=== PATIENT | female | born 2005 | race Caucasian/White ===

== ENCOUNTER 2024-05-15 19:08 | Emergency (ER) | payer OTHER ==
[~2024-05-15] VITALS: Ht 177.8 cm; Wt 106.4 kg
[2024-05-15 20:59] VITALS: BP 111/58; PULSE 70; RESP 17; TEMP 98.8; O2SAT 99
--- NOTE | 2024-05-15 21:17 | DVH ---
EXAM: XY L WRIST 3+ VIEW XRAY CLINICAL HISTORY: s/p fall pain swelling COMPARISON: None TECHNIQUE: XY L WRIST 3+ VIEW XRAY Findings/Impression: 3 views of the left wrist. There is no evidence of an acute fracture, dislocation, blastic, or lytic lesions. No radiopaque foreign bodies. No joint effusion or superficial soft tissue abnormalities.
--- NOTE | 2024-05-15 21:19 | DVH ---
EXAM: XY L ELBOW 3 VIEW XRAY CLINICAL HISTORY: s/p fall swelling and px COMPARISON: None TECHNIQUE: XY L ELBOW 3 VIEW XRAY Findings/Impression: 3 views of the left elbow. Nondisplaced fracture of the radial head. Moderate joint effusions and mild soft tissue edema. There is no evidence of an acute fracture, dislocation, blastic, or lytic lesions. No radiopaque foreign bodies.
--- NOTE | 2024-05-15 22:02 | ED.PDOC ---
Back pain HPI HPI Comments This is a 18-year-old female presents to the ED chief complaint left wrist and elbow pain. Patient states earlier today she was roller-skating and fell on her left wrist and elbow. Describes pain as sharp shooting pain that shoots up from the wrist to her elbow 8/10 on pain scale. She reports no numbness or weakness. She denies LOC, neck pain, back pain, or any other known injury. Chief Complaint: Upper Extremity Time Seen by MD: 19:18 Reviewed Notes: Nurses Notes, Medications, Allergies Allergies: Coded Allergies: NO KNOWN ALLERGIES (Unverified , 05/15/24) Information Source: Patient Mode of Arrival: Ambulatory Past Medical History PAST MEDICAL HISTORY: Denies Surgical History: Denies all surgeries INSULATION FOREMAN History: No Pertinent INSULATION FOREMAN History Family History Family History: Reviewed,noncontributory to illness, No family hx of Cancer, No family hx of DM, No family hx of Heart serina, No family hx of HTN, No family hx ofKidney serina, No family hx of Liver serina, No family hx of Lung serina, No family hx of Stroke Social History Smoker: Non-Smoker Alcohol: Denies ETOH Use Drugs: Denies Drug Use Constitutional: denies: chills, diaphoresis, fatigue, fever, malaise, sweats, weakness, others EENTM: denies: blurred vision, double vision, ear bleeding, ear discharge, ear drainage, ear pain, ear ringing, eye pain, eye redness, hearing loss, mouth pain, mouth swelling, nasal discharge, nose bleeding, nose congestion, nose pain, photophobia, tearing, throat pain, throat swelling, voice changes, others Respiratory: denies: cough, hemoptysis, orthopnea, SOB at rest, shortness of breath, SOB with excertion, stridor, wheezing, others Cardiovascular: denies: chest pain, dizzy spells, diaphoresis, Dyspnea on exertion, edema, irregular heart beat, left arm pain, lightheadedness, palpitations, PND, syncope, others Gastrointestinal: denies: abdomen distended, abdominal pain, blood streaked bowels, constipated, diarrhea, dysphagia, difficulty swallowing, hematemesis, melena, nausea, poor appetite, poor fluid intake, rectal bleeding, rectal pain, vomiting, others Genitourinary: denies: abnormal vagina bleeding, burning, dyspareunia, dysuria, flank pain, frequency, hematuria, incontinence, pain, , vagina discharge, urgency, others Neurological: denies: dizziness, fainting, headache, left sided numbness, left sided weakness, numbness, paresthesia, pre-existing deficit, right sided numbne ss, right sided weakness, seizure, speech problems, tingling, tremors, weakness, others Musculoskeletal: reports: others (Left elbow and wrist pain); denies: back pain, gout, joint pain, joint swelling, muscle pain, muscle stiffness, neck pain Integumetry: denies: bruises, change in color, change in hair/nails, dryness, laceration, lesions, lumps, rash, wounds, others Allergic/Immunocompromised: denies: Difficulty Healing, Frequent Infections, Hives, Itching, others Hematologic/Lymphatic: denies: anemia, blood clots, easy bleeding, easy bruising, swollen glands, others Endocrine: denies: excessive hunger, excessive sweating, excessive thirst, excessive urination, flushing, intolerance to cold, intolerance to heat, unexplained weight gain, unexplained weight loss, others Psychiatric: denies: anxiety, bipolar disorder, depression, hopeless, panic disorder, schizophrenia, sleepless, suicidal, others Physical Exam General Appearance: No Apparent Distress, Normal HEENT: Normal ENT Inspection, Pharynx Normal, TMs Normal Neck: Full Range of Motion, Non-Tender Respiratory: Chest Non-Tender, Lungs Clear, No Respiratory Distress, Normal Breath Sounds Cardiovascular: No Edema, No JVD, No Murmur, No Gallop, Normal Peripheral Pulses, Regular Rate/Rhythm Breast Exam: Deferred Gastrointestinal: No Organomegaly, Non Tender, No Pulsatile Mass, Normal Bowel Sounds, Soft Genitalia: Deferred Pelvic: Deferred Rectal: Deferred Extremities: Normal capillary refill, Normal inspection, Normal range of motion, Non-tender, No pedal edema Musculoskeletal : Location: Left Extremity Location: Wrist (Moderate tenderness palpated over dorsal aspect of the left wrist no noted crepitus or bony prominence no noted ecchymosis trace edema without lacerations or abrasions. Tenderness palpated over elbow. Strength sensory and motion intact positive radial pulse.) Apperance: Normal Neurologic: Alert, drier and grinder tender II-XII nml as Tested, No Motor Deficits, Normal Affect, Normal Mood, No Sensory Deficits Cerebellar Function: Normal Reflexes: Normal Skin: Dry, Normal Color, Warm Lymphatic: No Adenopathy Was a procedure done? Was a procedure done?: No Back Pain Differential Dx Differential Diagnosis: Fracture, Musculoskeletal Pain X-Ray, Labs, Meds, VS Vital Signs Date Time Temp Pulse Resp B/P (MAP) Pulse Ox O2 Delivery O2 Flow Rate FiO2 05/15/24 20:59 98.8 70 17 111/58 (75) 99 98.8 05/15/24 20:59 70 17 99 Room Air 05/15/24 19:35 98.8 92 16 131/87 (102) 98 Current Medications Medications (Trade) Dose Ordered Sig/Kerry Route Start Time Stop Time Status Last Admin Ketorolac Tromethamine (Toradol Injection) 60 mg ONCE ONCE IM 05/15/24 22:15 05/15/24 22:16 DC 05/15/24 22:21 X-Ray, Labs, Meds, VS Comment Left elbow shows no acute findings or osseous lesions. Left wrist shows distal radial fracture nondisplaced. Patient placed in dorsal splint. Tolerated well positive CSM before and after. sHe is to keep splint on until she follows up with her PCP for referral to ortho. Advised on rice. Script 800 mg of ibuprofen 3 times a day as needed for the pain and swelling. ER return precautions given. Patient agrees with discharge plan of care. Time of 1ST Reevaluation: 22:30 Reevaluation 1ST: Improved Patient Education/Counseling: Diagnosis, Treatment, Prognosis, Need For Follow Up Family Education/Counseling: No Family Present Departure 1 Departure Time of Disposition: 22:30 Impression: Primary Impression: Fracture of radial head, left, closed Qualified Codes: S52.125A - Nondisplaced fracture of head of left radius, initial encounter for closed fracture Disposition: 01 HOME / SELF CARE / HOMELESS Condition: Stable Discharged With: Relative (Mother) Critical Care Note Critical Care Time?: No Stability Stability form required: ODELL Mckeon May 15, 2024 22:02
[2024-05-15] MEDS: KETOROLAC TROMETH 60MG/2ML VIAL IM ONE (22:21)
[2024-05-15] MEDS ORDERED: IBUP-1456 PO (22:35)
== END 2024-05-15 22:38 | disposition home or self-care (01) ==
LOC: ER 19:08
DX: S52.125A Nondisplaced fracture of head of left radius, initial encounter for closed fracture (principal); V98.8XXA Other specified transport accidents, initial encounter; Y93.89 Activity, other specified; Y92.89 Other specified places as the place of occurrence of the external cause; Y99.8 Other external cause status
CPT/HCPCS: 29125; 73080; 73110; 96372; 99284; J1885